=== PATIENT | female | born 1965 | race Caucasian/White ===

== ENCOUNTER 2016-09-20 11:27 | Emergency (ER) | payer BC, OTHER ==
--- NOTE | 2016-11-10 21:30 | ER ---
ADMIT: 09/20/2016 RM/LOC: ER [facility] MR#: [id number] [address] [id number] JONATHAN EVANGELISTA [address] [place] [address] MARVIN PAULSON [id number] Emergency Room Report SEX: F AGE: 51 : 1965 DATE: 09/20/2016 ADDENDUM: This patient comes into the ER because she has pain in her right flank area. She has had it for the last 2 days. 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 They told her that she could have kidney stones, but they did not do a CAT scan on her according to the patient. She points to the area of pain being in the right flank area. She does have CVA tenderness. CT scan was negative. Her CBC, BMP, and urinalysis were normal. IV of normal saline was started. She was given Toradol 30 mg IV, Zofran 4 mg IV, and morphine. I did let the patient know the results of the CAT scan and the labs. She is currently traveling out of town. We will have her follow up with her primary and continue to push fluids. Please see my T-sheet. MARVIN Casanova / Edgar Tran MD / modl JOB #: [id number] CC: Edgar Tran MD, Attending Physician Eric Amador MD, Family Physician
== END 2016-09-20 14:00 | disposition home or self-care (01) ==
LOC: ER 11:27
DX: R10.9 Unspecified abdominal pain (principal); Z88.8 Allergy status to other drugs, medicaments and biological substances; Z79.899 Other long term (current) drug therapy